=== PATIENT | female | born 1995 | race American Indian/Alaskan Native ===

== ENCOUNTER 2019-06-19 20:46 | Emergency (ER) | payer MEDICAID, OTHER ==
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
[2019-06-20] MEDS ORDERED: TYLENOL PO ONE (01:41)
[2019-06-20] MEDS ORDERED: IBUPROFEN PO ONE (01:41)
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
[2019-06-20 02:56] VITALS: BP 120/68
== END 2019-06-20 02:55 | disposition home or self-care (01) ==
LOC: ED 20:46
DX: M62.830 Muscle spasm of back (principal); M62.838 Other muscle spasm; V49.49XA Driver injured in collision with other motor vehicles in traffic accident, initial encounter; Y93.89 Activity, other specified; Y92.488 Other paved roadways as the place of occurrence of the external cause; Y99.8 Other external cause status
CPT/HCPCS: 72040; 72100